=== PATIENT | male | born 1975 | race African-American/Black ===

== ENCOUNTER 2023-11-10 12:23 | Emergency (ER) | payer OTHER ==
[2023-11-10 13:06] LABS: #Basophils 0.1 10x3/uL (0.0-0.2); #Eosinphils 0.1 10x3/uL (0.0-0.5); #Monocytes 0.3 10x3/uL (0.0-1.1); #Neutrophils 3.1 10x3/uL (1.5-8.4); %Eosinophils 1.4 % (0.0-6.0); %Monocytes 6.9 % (0.0-10.0); %Neutrophils 62.5 % (40.0-75.0); Hematocrit 37.9 % (38.8-50.0); Hemoglobin 13.5 g/dL (13.5-17.5); Mean Corpuscular HGB CONC 35.6 g/dL (32.0-36.0); Mean Corpuscular Hemoglobin 27.8 pg (27.0-33.0); Mean Corpuscular Volume 78.1 fl (81.2-95.1); Mean Platelet Volume 9.4 fl (7.4-10.4); Platelet Count 364 10x3/uL (150-450); Red Blood Cell (RBC) Count 4.85 10x6/uL (4.32-5.72); White Blood Cell (WBC) Count 4.9 10x3/uL (3.5-10.5)
[2023-11-10 13:18] LABS: ALT (SGPT) 49 U/L (8-55); AST (SGOT) 24 U/L (5-34); Albumin 3.7 g/dL (3.5-5.0); Alkaline Phosphatase 57 U/L (40-110); Anion Gap 15 mmol/L (10-20); BUN (Urea Nitrogen) 22 mg/dL (8.9-20.6); Bilirubin, Total 1.5 mg/dL (0.2-1.2); Calc. Creatinine Clearance 0 mL/min (70-130); Calcium 8.8 mg/dL (7.8-10.44); Carbon Dioxide 22 mmol/L (22-29); Chloride 105 mmol/L (98-107); Estimated GFR 64; Globulin 2.6 g/dL (2.4-3.5); Glucose 107 mg/dL (70-105); Potassium 3.5 mmol/L (3.5-5.1); Protein, Total 6.3 g/dL (6.0-8.3); Sodium 138 mmol/L (136-145)
[2023-11-10 13:28] LABS: Troponin I 0.883 ng/mL (< 0.028)
[2023-11-10] MEDS ORDERED: Iopamidol 370 76% 100 ML VIAL ONE (13:53)
[2023-11-10] MEDS ORDERED: Aspirin Chewable 81 MG TAB ONE (14:49)
[2023-11-10 15:46] LABS: SARS-CoV-2 NAA Rapid Test Not Detected (NotDetected)
[2023-11-10] MEDS ORDERED: Heparin 25,000 units/D5W 500 ML ONE (17:21)
[2023-11-10 17:57] LABS: INR-International Normal Ratio 1.5; PTT 25.3 sec (22.0-33.0); Prothrombin Time 15.7 sec (9.5-12.1)
[2023-11-10] MEDS ORDERED: Heparin 10,000 UNITS/ 10 ML VIAL SLOW IVP SCH (18:15)
== END 2023-11-10 19:38 | disposition short-term general hospital (02) ==
LOC: CSHERS 12:23 → EEVIPCON 12:23 → CSHERS 19:38
DX: I11.0 Hypertensive heart disease with heart failure (principal); I50.9 Heart failure, unspecified; I26.09 Other pulmonary embolism with acute cor pulmonale; I25.10 Atherosclerotic heart disease of native coronary artery without angina pectoris; Z20.822 Contact with and (suspected) exposure to COVID-19; Z79.82 Long term (current) use of aspirin
CPT/HCPCS: 36415; 71045; 71275; 80053; 84484; 85025; 85379; 85610; 85730; 93005; 96361; 96365; J1644; Q9967